=== PATIENT | male | born 1960 | race African-American/Black ===

== ENCOUNTER 2017-02-15 07:05 | Day surgery (SDC) | payer OTHER ==
[~2017-02-15] VITALS: Ht 167.6 cm; Wt 86.2 kg
[~2017-02-15 07:05] MED LIST: AMARYL4 MG PO; COREG25 M1 PO; COZAAR100 MG PO; GLUCOPHAGE850 MG PO; JANUVIA100 MG PO; LIPITOR10 MG PO
[2017-02-15 07:50] VITALS: BP 164/80
[2017-02-15 12:15] VITALS: BP 151/97
[2017-02-15 13:00] VITALS: BP 126/70
== END 2017-02-15 13:18 | disposition home or self-care (01) ==
LOC: SDC 07:05
PROVIDERS: Ophthalmology
DX: E11.354 Type 2 diabetes mellitus with proliferative diabetic retinopathy with combined traction retinal detachment and rhegmatogenous retinal detachment (principal); I10 Essential (primary) hypertension; E78.5 Hyperlipidemia, unspecified; Z79.82 Long term (current) use of aspirin; Z79.84 Long term (current) use of oral hypoglycemic drugs
CPT/HCPCS: 82948; J0690; J1100; J2250; J2795; J3010; J3300